=== PATIENT | male | born 2000 ===

== ENCOUNTER 2023-08-25 21:17 | Emergency (ER) | payer MEDICAID, OTHER ==
[~2023-08-25] VITALS: Ht 168 cm; Wt 60.0 kg
[2023-08-25 21:25] VITALS: BP 137/96
--- NOTE | 2023-08-25 21:34 | ED EENT ---
History of Present Illness General Chief Complaint: Eye Problems Stated Complaint: CONTACT STUCK IN LEFT EYE Nursing Triage Note: reports lost contact in left eye. medial sharp/stabbing pain, blurry vision x30 min. Source: patient Exam Limitations: no limitations History of Present Illness Date Seen by Provider: Aug 25, 2023 Time Seen by Provider: 21:28 Initial Comments Patient is a 23-year-old male who presents to the emergency room with a chief complaint of contact lens injury left eye. Patient states that he thinks he "lost" his contact in his eye. He tried to get it out but could not. Complains of sharp stabbing pain to the lateral aspect of the left eye. No blurry vision. Timing/Duration: abrupt Severity: moderate Location: eye (L) Prearrival Treatment: no prearrival treatment Associated Symptoms: denies symptoms Allergies and Home Medications Allergies Coded Allergies: No Known Drug Allergies (Unverified , 08/25/23) Patient Home Medication List Home Medication List Reviewed: Yes No Active Prescriptions or Reported Meds Review of Systems Review of Systems Constitutional: see HPI Eyes: Pain, Contact Lenses Past Wmtzmay-Qdjzbv-Cqupcs Hx Patient Social History Tobacco Use?: No Substance use?: No Alcohol Use?: No Pt feels they are or have been: No Immunizations Up To Date First/Initial COVID19 Vaccinat: na Past Medical History Surgery/Hospitalization HX: denies Physical Exam Vital Signs Vital Signs - First Documented 08/25/23 21:25 Temp 36.7 Pulse 65 Resp 14 B/P (MAP) 137/96 (110) Pulse Ox 100 O2 Delivery Room Air Height, Weight, BMI Height: '" Weight: lbs. oz. kg; BMI Method: General Appearance: WD/WN, no apparent distress Eyes: right eye normal inspection, right eye EOMI; left eye PERRL, left eye foreign body (Folded up contact lens identified in the superior medial aspect of the left eye. I was able to grasp the contact lens and remove it intact.) Nose: normal inspection Respiratory: no respiratory distress, no accessory muscle use Neurologic/Psychiatric: alert, normal mood/affect, oriented x 3 Skin: normal color, warm/dry Progress/Results/Core Measures Results/Orders My Orders Orders - RASHIDA FELICIANO MD Tetracaine 0.5% Ophth Soln (Tetravisc 0. (08/25/23 21:45) Fluorescein Ophthalmic Strips (Fluoresce (08/25/23 21:45) Balanced Salt Irrigation Soln (Bss Irrig (08/25/23 21:45) Tetracaine 0.5% Ophth Alejandra Sdv (Tetracai (08/25/23 21:37) Medications Given in ED Current Medications Medications Dose Ordered Sig/Job Route Start Time Stop Time Status Last Admin Dose Admin Balanced Salt Solution 15 ml ONCE ONCE IR 08/25/23 21:45 08/25/23 21:46 DC 08/25/23 21:39 15 ML Fluorescein Sodium 1 mg ONCE ONCE OU 08/25/23 21:45 08/25/23 21:46 DC 08/25/23 21:39 1 MG Tetracaine HCl 4 ml STK-MED ONCE .ROUTE 08/25/23 21:37 08/25/23 21:39 DC 08/25/23 21:40 4 ML Vital Signs/I&O 08/25/23 21:25 Temp 36.7 Pulse 65 Resp 14 B/P (MAP) 137/96 (110) Pulse Ox 100 O2 Delivery Room Air Progress Progress Note : Time: 21:40 Progress Note Patient seen and examined by me. Evaluation today includes history and physical exam. Pertinent physical exam findings include well-developed well-nourished male in no acute distress with a folded contact lens in the superior medial aspect of the left eye lying over the sclera. Patient has diffuse scleral injection. Some tearing. I was able to manually remove the contact lens from the eye. It appears intact. Patient subsequent to this had local anesthetic with tetracaine. Fluorescein stain used to evaluate for corneal abrasion. He does have a small amount of abrasion lateral to the iris. Nothing overlying the cornea. He had relief of discomfort with the tetracaine. I advised the patient not to wear his contacts for 24 hours. He states he is only been new to contacts over the last 2 weeks. Return precautions provided in both verbal and written format. All questions sought and answered. Patient is improved at discharge Departure Impression Primary Impression: Contact lens stuck Disposition: 01 HOME, SELF-CARE Condition: Improved Departure-Patient Inst. Decision time for Depature: 21:44 Referrals: NO,LOCAL PHYSICIAN (PCP/Family) Primary Care Physician Patient Instructions: Contact Lens Care Add. Discharge Instructions: Give your eye 24 hours to heal up from the inflammation of the stuck contact lens. You can resume wearing the contacts on . Return to the Emergency Department for any new, emergent or concerning symptoms. Scripts No Active Prescriptions or Reported Meds RASHDIA FELICIANO MD Aug 25, 2023 21:34
[2023-08-25] MEDS ORDERED: TETRACAINE 0.5% OPHTH SOLN 4 ML BTL (SINGLE DOSE ONLY) ONE (21:37)
[2023-08-25] MEDS ORDERED: FLUORESCEIN 1 MG OPHTHALMIC STRIPS OU ONE (21:45)
[2023-08-25] MEDS ORDERED: TETRACAINE 0.5% OPHTH SOLN 5 ML BTL OU ONE (21:45)
[2023-08-25] MEDS ORDERED: BSS 15 ML IR ONE (21:45)
== END 2023-08-25 21:49 | disposition home or self-care (01) ==
LOC: ER 21:22
DX: S05.8X2A Other injuries of left eye and orbit, initial encounter (principal); W26.8XXA Contact with other sharp object(s), not elsewhere classified, initial encounter
CPT/HCPCS: 65220